=== PATIENT | male | born 1930 | race Caucasian/White ===

== ENCOUNTER 2017-12-19 15:52 | Outpatient (CLI) | payer MEDICARE, BC ==
[2017-12-19 16:16] LABS: Hemoglobin 15.1 g/dL (14.0-18.0); Mean Corpuscular HGB CONC 32.1 g/dL (32.0-36.0); Mean Corpuscular Hemoglobin 29.8 pg (27.0-31.0); Mean Corpuscular Volume 92.8 fl (80.0-94.0); Mean Platelet Volume 6.5 fL (7.4-10.4); Platelet Count 375 thou/uL (130-400); RBC Distribution Width 13.3 % (11.5-14.5); Red Blood Cell (RBC) Count 5.07 mill/uL (4.70-6.10); White Blood Cell (WBC) Count 8.8 thou/uL (4.8-10.8)
[2017-12-19 16:34] LABS: Anion Gap 12 mmol/L (10-20); BUN (Urea Nitrogen) 41 mg/dL (8.4-25.7); Calc. Creatinine Clearance 0 mL/min (70-130); Calcium 9.6 mg/dL (7.8-10.44); Carbon Dioxide 28 mmol/L (23-31); Chloride 108 mmol/L (98-107); Estimated GFR-MDRD 57; Glucose 102 mg/dL (83-110); Potassium 5.3 mmol/L (3.5-5.1); Sodium 143 mmol/L (136-145)
--- NOTE | 2017-12-19 17:10 | RAD ---
PA AND LATERAL VIEWS CHEST: 12/19/17 HISTORY: Preoperative evaluation. FINDINGS/IMPRESSION: The heart size is normal. The aorta is tortuous. The lungs are well expanded. There is linear plate o f atelectasis versus scar in the right lung base. Mild infiltrates are noted in the lung bases bilate rally. No lobar consolidation, pneumothoraces, or large effusions are seen. POS: [facility]
== END 2017-12-19 15:53 | disposition home or self-care (01) ==
LOC: LABBT 15:52
PROVIDERS: ATTEND Urology
DX: Z01.818 Encounter for other preprocedural examination (principal); Z01.812 Encounter for preprocedural laboratory examination; N20.2 Calculus of kidney with calculus of ureter; I77.1 Stricture of artery; J90 Pleural effusion, not elsewhere classified; J98.4 Other disorders of lung
CPT/HCPCS: 71046; 80048; 85027

== ENCOUNTER 2017-12-24 08:21 | Day surgery (SDC) | payer MEDICARE, BC ==
[2017-12-19 16:18] VITALS: BMI 21.2
[2017-12-24] MEDS ORDERED: CEFAZOLIN 1 GM, Syringe 2.5 ML in Sterile Water 7.5 ML SLOW IVP SCH (09:00)
--- NOTE | 2017-12-24 09:21 | RAD ---
ABDOMEN ONE VIEW: History: Pre-operative evaluation for a left renal stone. FINDINGS: KUB demonstrates a left ureteral stent in place. There does appear to be a poorly defined left renal calculus. There appear to be at least two right renal calculi. Moderate fecal material in the colon. Evidence for hiatal hernia. Linear and parenchymal changes in the lower lung zones having more of a c hronic appearance. IMPRESSION: Left ureteral stent. Bilateral renal calculi. Other findings as above. No recent prior radiographs av ailable for comparison. POS: [facility]
[2017-12-24] MEDS ORDERED: Fentanyl 250 MCG/5 ML VIAL ONE (12:13)
[2017-12-24] MEDS ORDERED: Iothalamate Meglumine 60% 50 ML VIAL FS ONE (12:14)
[2017-12-24] MEDS ORDERED: Furosemide 20 MG/2 ML VIAL ONE (12:14)
[2017-12-24] MEDS ORDERED: ePHEDrine/0.9% NaCl/PF SYRINGE 50 mg/10 ml ONE (14:53)
[2017-12-24] MEDS ORDERED: Ondansetron HCl/PF 4 MG/2 ML Vial ONE (14:53)
[2017-12-24] MEDS ORDERED: Propofol 200 MG/20 ML VIAL ONE (14:53)
[2017-12-24] MEDS ORDERED: Lidocaine 1% PF 5 ML VIAL ONE (14:53)
[2017-12-24] MEDS ORDERED: PHENYLEPHRINE-NS 100 MCG/ML 10 ML SYRINGE ONE (14:53)
--- NOTE | 2017-12-24 18:07 | OP ---
DATE OF PROCEDURE: 12/24/2017 PREOPERATIVE DIAGNOSIS: Left ureteral and left renal stones. POSTOPERATIVE DIAGNOSIS: Left ureteral and left renal stones. PROCEDURE: Cystoscopy, left ureteroscopy, left holmium laser lithotripsy, left stone basketing and s tone removal, left stent 6 x 22 and left extracorporal shock wave lithotripsy. SURGEON: Jannette Pan MD ANESTHESIA: General with laryngeal mask airway. FINDINGS: Adequate removal of a left ureteral stone after fragmentation, adequate fragmentation of t he left renal stone. Stent remaining was a 6 x 22 with a string. No blood loss, no complications other than the left renal stone was difficult to see via fluoroscopy. INDICATIONS: The patient is an 87-year-old male who underwent urgent stent for left ureteral obstruc tion with rising creatinine and pain and presents for definitive stone therapy. He also had a left r enal stone, so we opted for elective treatment of this at the same time. PROCEDURE IN DETAIL: The patient was brought to the room by Anesthesia, placed on the table in supin e position. After receiving general anesthetic, the legs were placed in lithotomy position with the right leg elevated and left leg lowered and his perineum was prepped and draped in sterile fashion. Using a 22-Chinese cystoscope and a 30-degree lens, it was traversed and the bladder entered. The tre nt was grasped and brought out through the urethral meatus. A wire was attempted to pass both forwar d and backwards and was unable to uncoil it, so alongside the stent, that was partially removed. The cystoscope was taken to the left ureteral orifice and then intubated with a Pollack catheter and a w victorino. The stent still could not be extracted at this time, so leaving the wire in place, the scope wa s broken apart, bladder drained and removed in its entirety and then the stent was removed with some pressure consistent with it going alongside the stone as it was removed, so with the wire in place an d the rigid ureteroscope was used to travel up to the level of the stone where laser holmium lithotri psy was used to pass it into 2 small fragments and a larger fragment. All fragments were removed wit h the stone basket and sent for specimen. A final pass of the ureter showed that it was clear of any concerning stone and then a 6 x 22 double-J was placed over a wire with good coil visualized in the renal pelvis via fluoroscopy and a good coil visualized in the bladder via cystoscopy. The patient w as then returned to supine position. A prior KUB was examined and showed the left superior pole stone, but this was more difficult to eval uate via fluoroscopy. A significant amount of time was spent trying to assess for this and ultimatel y agreed that it was most likely in that same area as the KUB from a few hours earlier, but just more difficult to see as it was in this area that I delivered lithotripter to deliver 2000 shocks at a po wer level of 4/6 at a maximum rate of 90 per minute. The patient tolerated the procedure well and wa s then awakened and transferred to PACU in stable condition.
== END 2017-12-24 16:35 | disposition home or self-care (01) ==
LOC: SDC 08:21
PROVIDERS: ATTEND Urology
PROC: 0TF4XZZ Fragmentation in Left Kidney Pelvis, External Approach (ICD-10-PCS; principal; 2017-12-24)
PROC: 0TC78ZZ Extirpation of Matter from Left Ureter, Via Natural or Artificial Opening Endoscopic (ICD-10-PCS; 2017-12-24)
PROC: 0T778DZ Dilation of Left Ureter with Intraluminal Device, Via Natural or Artificial Opening Endoscopic (ICD-10-PCS; 2017-12-24)
DX: N20.1 Calculus of ureter (principal); N20.0 Calculus of kidney; R35.0 Frequency of micturition; R35.1 Nocturia; I10 Essential (primary) hypertension; K21.9 Gastro-esophageal reflux disease without esophagitis; G89.29 Other chronic pain; M54.9 Dorsalgia, unspecified; M19.90 Unspecified osteoarthritis, unspecified site; K51.90 Ulcerative colitis, unspecified, without complications; D50.8 Other iron deficiency anemias; I44.7 Left bundle-branch block, unspecified; Z87.442 Personal history of urinary calculi; Z79.899 Other long term (current) drug therapy; Z79.82 Long term (current) use of aspirin; Z88.2 Allergy status to sulfonamides; Z88.8 Allergy status to other drugs, medicaments and biological substances
CPT/HCPCS: 74018; 82365; 88300; A4216; J0690; J1940; J2001; J2405; J2704; J3010; Q9961

== ENCOUNTER 2019-10-16 11:41 | Inpatient (IN) | payer MEDICARE, BC ==
--- NOTE | 2019-10-16 12:35 | CT ---
CT Head without IV contrast COMPARISON: None available HISTORY: Injury after fall. Hypotensive. TECHNIQUE: Axial CT imaging at 5 mm intervals from vertex through skull base without contrast FINDINGS: There is no evidence of an acute infarction, hemorrhage, mass effect, or midline shift. There is decr eased attenuation seen in the periventricular white matter which is nonspecific but likely attributable to chronic small vessel ischemic changes. There is mild cerebral volume loss. The ventri cular system is normal in size, shape, and position for the degree of sulcal atrophy. Visualized paranasal sinuses are clear. There is a small mastoid effusion involving a posterior right mastoid air cell. Osseous structures appear intact. IMPRESSION: 1. No acute intracranial abnormality demonstrated. 2. Small right mastoid air cell effusion.
--- NOTE | 2019-10-16 12:43 | CT ---
NONCONTRAST CT CERVICAL SPINE: HISTORY: Injury after a fall. TECHNIQUE: Contiguous axial CT images are obtained through the cervical spine from the skull base to the T1-2 le mode. Sagittal and coronal reformatted images are provided. FINDINGS: Multilevel degenerative changes are seen in the cervical spine. There are prominent degenerative tamar nges at the articulation of the anterior arch of C1 and the odontoid. There is narrowing of the C5-6 , C6-7, and C7-t1 intervertebral disk spaces. Multilevel facet degenerative changes are noted. Scat tered mild degrees of neural foraminal narrowing are seen due to bony encroachment. No fracture or subluxation is seen involving the cervical spine. The interspinous distances appear t o be within normal limits. No prevertebral soft tissue swelling is seen. The visualized lung apices are clear. Thyroid gland has a grossly normal nonenhanced CT appearance. There is partial visualization of right subclavian leads. IMPRESSION: Multilevel degenerative changes cervical spine without fracture or subluxation present. POS: [facility]
--- NOTE | 2019-10-16 12:59 | RAD ---
AP PELVIS RADIOGRAPH: HISTORY: Left hip pain after a fall. FINDINGS: There is a lucency seen in the left acetabulum suggesting a fracture. There is no evidence of a dislo cation involving the left hip. Minimal left glenohumeral osteoarthropathy is present. Each hip is in external rotation. Degenerative change is seen in the lower lumbar spine. Vascular calcifications and phleboliths overlie the pelvis with vascular calcifications overlying the region of the femoral a rteries. IMPRESSION: Left acetabular fracture. POS: [facility]
--- NOTE | 2019-10-16 13:01 | RAD ---
TWO VIEWS LEFT HIP: HISTORY: Left hip pain after a fall. FINDINGS: There is a lucency seen left acetabulum suggestion a fracture. There is no evidence of a dislocation involving the left hip. Minimal left glenohumeral osteoarthropathy is present. Degenerative changes are seen in the lower lumbar spine. Vascular calcifications are seen in the region of iliac and fem oral arteries. Calcification overlies the left aspect of the sacrum which may represent overlying ph lebolith. This is difficult to further evaluate on plain film evaluation. IMPRESSION: Left acetabular fracture. POS: [facility]
--- NOTE | 2019-10-16 13:09 | RAD ---
Left elbow 2 views: 10/16/2019 COMPARISON: None HISTORY: Injury, trauma, pain FINDINGS: There is severe soft tissue swelling. There is a comminuted proximal left ulnar fracture/ol ecranon fracture with intra-articular extension. The olecranon fracture fragment is retracted by 9 mm posteriorly and slightly proximally on the basis of triceps insertion retraction. IMPRESSION: Comminuted displaced intra-articular fracture of the proximal left ulna/olecranon. Orthop edic consultation advised.
[2019-10-16] MEDS ORDERED: Fentanyl 100 MCG/2 ML VIAL ONE ×2 (13:39→14:57)
[2019-10-16 13:58] LABS: #Eosinphils 0.1 thou/uL (0.0-0.7); #Neutrophils 12.1 thou/uL (1.40-6.50); %Basophils 0.3 % (0.0-1.0); %Eosinophils 0.9 % (0.0-10.0); %Lymphocytes 6.7 % (21.0-51.0); %Monocytes 6.8 % (0.0-10.0); %Neutrophils 85.2 % (42.0-75.0); Hemoglobin 12.8 g/dL (14.0-18.0); Mean Corpuscular HGB CONC 31.7 g/dL (32.0-36.0); Mean Corpuscular Hemoglobin 26.5 pg (27.0-31.0); Mean Corpuscular Volume 83.7 fL (78.0-98.0); Mean Platelet Volume 7.8 fL (7.4-10.4); Platelet Count 210 thou/uL (130-400); RBC Distribution Width 14.1 % (11.5-14.5); Red Blood Cell (RBC) Count 4.81 mill/uL (4.70-6.10); White Blood Cell (WBC) Count 14.2 thou/uL (4.8-10.8)
--- NOTE | 2019-10-16 14:01 | RAD ---
PORTABLE CHEST 1 VIEW: DATE: 10/16/2019. TIME: 1:34 p.m. HISTORY: Preoperative evaluation. FINDINGS: The heart size is borderline. The aorta is tortuous. There is a right-sided pacemaker device. No f ocal areas of consolidation, pneumothoraces, debbie pulmonary edema, or pleural effusions are seen. T here are degenerative changes in the shoulder joints. IMPRESSION: No acute process. POS: [facility]
[2019-10-16 14:04] LABS: INR-International Normal Ratio 1.4; PTT 33.5 SEC (22.9-36.1); Prothrombin Time 16.6 SEC (12.0-14.7)
[2019-10-16 14:19] LABS: ALT (SGPT) 11 U/L (8-55); AST (SGOT) 21 U/L (5-34); Albumin 3.5 g/dL (3.4-4.8); Alkaline Phosphatase 83 U/L (40-110); Anion Gap 13 mmol/L (10-20); BUN (Urea Nitrogen) 28 mg/dL (8.4-25.7); Bilirubin, Total 0.6 mg/dL (0.2-1.2); Calc. Creatinine Clearance 0 mL/min (70-130); Carbon Dioxide 21 mmol/L (23-31); Chloride 108 mmol/L (98-107); Estimated GFR-MDRD 59; Globulin 2.2 g/dL (2.4-3.5); Glucose 130 mg/dL (83-110); Potassium 4.2 mmol/L (3.5-5.1); Protein, Total 5.7 g/dL (5.8-8.1); Sodium 138 mmol/L (136-145)
--- NOTE | 2019-10-16 14:20 | CT ---
CT Lower Ext Lt WO Con History: Injury. Comparison: Radiograph same day Findings: Left anterior column posterior hemitransverse fracture of the acetabulum. Fracture of the i nferior pubic ramus. The anterior column fracture does extend into the pubic root. Large left hip joint effusion with pelvic sidewall hematoma. Moderate extraperitoneal hematoma. Was a lso small volume intraperitoneal hemorrhage. Sacrum appears be intact. Soft tissue contusion over the left lateral thigh. The femoral head and neck are intact. Small flake of bone anterior to the left humeral head versus ossified cartilage. Impression: Left anterior column posterior hemitransverse acetabular fracture with the anterior colum n fracture extending to the acetabular root. Associated minimally displaced left inferior pubic ramus fracture. Extraperitoneal and small volume intraperitoneal hemorrhage with large left pelvic sidewall hematoma. Either a small intra-articular flake of bone axial image 21 versus less likely ossified cartilage.
[2019-10-16] MEDS ORDERED: Iopamidol-370 76% 500 ML 1 ML ONE (15:27)
[2019-10-16] MEDS ORDERED: Ondansetron PF 4 MG/2 ML Vial IVP PRN (15:30)
[2019-10-16] MEDS ORDERED: Dextrose 50% Abboject 50 ML SYRINGE SLOW IVP PRN (15:30)
[2019-10-16] MEDS ORDERED: Insulin Regular 300 UNITS/3 ML VIAL SC PRN (15:30)
[2019-10-16] MEDS ORDERED: Dextrose 5% in Water 1,000 ML IV PRN (15:30)
[2019-10-16] MEDS ORDERED: Morphine 2 MG/ML SYRINGE SLOW IVP SCH (15:58)
--- NOTE | 2019-10-16 17:25 | CT ---
CT OF THE CHEST, ABDOMEN AND PELVIS WITH IV CONTRAST INDICATION: Fall COMPARISON: CT the abdomen and pelvis dated June 12, 2013 FINDINGS: Motion artifact limits image detail. CHEST: Lungs:Clear. 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 There i s mild cardiomegaly Pleural space: No pneumothorax or effusion. Additional findings: There is a large hiatal hernia. There is a dual-lead pacemaker overlying the ri ght chest wall ABDOMEN: Liver:Normal appearing. Spleen:Normal appearing. Pancreas:Normal appearing. Adrenal Glands:Normal appearing. Kidneys:Normal appearing. Aorta:There are moderate vascular calcifications seen involving the visualized vasculature. Additional findings: No free fluid or free air. PELVIS: Bowel:There is mild amount retained stool within colon. There are scattered colonic diverticula. Bladder:Normal appearing. Reproductive structures:Normal appearing. Rectum and perirectal soft tissues:Normal appearing. Additional findings: No free fluid or free air. OSSEOUS STRUCTURES: There is a heavily comminuted left anterior column and superior acetabular roof fracture. There is a mildly displaced left inferior pubic ramus fracture. There is mild hemorrhage is seen within the extraperitoneal space of the lower pelvis. There are stable compression abnormalities involving T12 a nd T8. There is scattered degenerative and osteoarthritic changes. IMPRESSION: 1. Heavily comminuted left acetabular fracture with left inferior pubic ramus fracture. Mild extraper itoneal hemorrhage seen within the pelvis. 2. Chronic T12 and T8 compression abnormalities. 3. No additional acute traumatic injury identified.
[2019-10-16] MEDS: Sodium Chloride 0.9% 1,000 ML IV SCH (17:49)
[2019-10-16] MEDS: Acetaminophen 500 MG TAB PO SCH ×2 (18:02→23:37)
[2019-10-16] MEDS ORDERED: Morphine 4 MG/ML VIAL SLOW IVP PRN (18:14)
--- NOTE | 2019-10-16 19:28 | HP ---
REQUESTING PHYSICIAN: CONSULTING PHYSICIAN: Dr. Nolasco. ATTENDING PHYSICIAN: Dr. Arteaga. HISTORY OF PRESENT ILLNESS: Mr. Ghosh is an 89-year-old male presents to the ED for left elbow and left hip pain after a fall. The patient reports he was walking, tripped and fell, did not have loss consciousness or hit his head at that time. After the fall, the patient reports having severe pain of the left elbow and left hip, unable to bear weight. No other associate symptoms to be reported. Upon arrival in the ED, the patient is alert and awake. GCS 15. Complained of pain from the left elbow and left hip. Vital signs stable. REVIEW OF SYSTEMS: Noncontributory except per HPI. PAST MEDICAL HISTORY: Hypertension, pacemaker. PAST SURGICAL HISTORY: Bilateral knee replacement. SOCIAL HISTORY: The patient lives at home. Denies drug use. Denies alcohol. No smoking history. ALLERGIES: SULFA. PHYSICAL EXAMINATION: GENERAL: Currently patient lying in bed, comfortable in no acute respiratory distress. VITAL SIGNS: Blood pressure 124/79, respiratory rate 14, O2 saturation 96% on room air, temperature 97.6, respiratory rate 14, heart rate is 88. HEENT: Atraumatic. No bruising. No deformity. Nontender to palpation. NECK: Trachea midline. Nontender to palpation. CHEST: Atraumatic. No bruising. No crepitus. No tenderness to palpation. LUNGS: Clear bilaterally. HEART: Regular rate and rhythm. ABDOMEN: Soft, nondistended. EXTREMITY: Left upper extremity pain to palpation and left elbow range of motion limited due to pain. Left hip range of motion limited due to pain. However, neurovascularly intact x4. NEUROLOGY: No focal neurology deficits. DIAGNOSTIC STUDIES: Initial work showed, chest x-ray no acute process. Chest, abdominal, pelvic CT scan show heavily comminuted left acetabular fracture, left inferior pubic ramus fracture, mild extraperitoneal hemorrhage seen within the pelvis. Left elbow x-ray show comminuted displaced intra-articular fracture of the proximal left ulnar olecranon. ASSESSMENT: 1. Status post ground level fall. 2. Left intra-articular ulnar fracture. 3. Left acetabular fracture, extraperitoneal hematoma. 4. History of pacemaker and history of lumbar spine compression fracture, chronic. PLAN: Dr. Nolasco is notified. Dr. Nolasco will take the patient to the OR for left ulnar fracture fixation tomorrow. The patient will be admitted to [place] [id number] for pain control. The patient will be n.p.o. at midnight. The patient will have DVT prophylaxis, gastritis prophylaxis. After surgery the patient will be working with PT/OT. Anticipate placement in rehabilitation facility. In regard to left acetabular fracture, Dr. Nolasco will advise if he needs fixation or conservative treatment. Job ID: [id number] MTDD
[2019-10-16] MEDS ORDERED: Morphine 2 MG/ML SYRINGE SLOW IVP PRN (19:38)
[2019-10-16] MEDS ORDERED: Ondansetron PF 4 MG/2 ML Vial SLOW IVP PRN (19:38)
[2019-10-16] MEDS ORDERED: CEFAZOLIN 2 GM in Premix Bag 1 BAG IVPB SCH (19:45)
[2019-10-16] MEDS ORDERED: Famotidine/PF 20 mg/2ml Vial SLOW IVP SCH (21:00)
[2019-10-16] MEDS: Gabapentin 100 MG CAP PO SCH (21:20)
[2019-10-16] MEDS: Senokot S 8.6-50 MG TAB PO SCH (21:20)
[2019-10-16] MEDS: Ibuprofen 600 MG TAB PO SCH (21:20)
[2019-10-17 03:14] VITALS: BMI 28.2
[2019-10-17] MEDS: Sodium Chloride 0.9% 1,000 ML IV SCH ×3 (03:34→23:48)
[2019-10-17] MEDS: Acetaminophen 500 MG TAB PO SCH ×4 (06:40→23:48)
[2019-10-17] MEDS: Ibuprofen 600 MG TAB PO SCH ×3 (06:41→21:49)
[2019-10-17] MEDS: Gabapentin 100 MG CAP PO SCH ×2 (08:09→20:30)
[2019-10-17] MEDS: Polyethylene Glycol 3350 17 GM Packet PO SCH (08:10)
[2019-10-17] MEDS: Senokot S 8.6-50 MG TAB PO SCH ×2 (08:10→20:30)
[2019-10-17] MEDS ORDERED: Prevnar 13-Val Conj/PF 0.5 ML SYRINGE IM ONE (09:00)
[2019-10-17] MEDS ORDERED: FLU VACC TS2019-20(65YR UP)/PF 180 MCG/0.5 ML SYRINGE IM ONE (09:00)
[2019-10-17] MEDS ORDERED: PROPOFOL 200 MG/20 ML VIAL ONE (11:59)
[2019-10-17] MEDS ORDERED: Metoclopramide HCl 10 MG/2 ML VIAL ONE (11:59)
[2019-10-17] MEDS ORDERED: Rocuronium Bromide 10 MG/ML (10ML VIAL) ONE (11:59)
[2019-10-17] MEDS ORDERED: Lidocaine 1% PF 5 ML VIAL ONE (11:59)
[2019-10-17] MEDS ORDERED: Glycopyrrolate 0.2 MG/ML 5 ML SYRINGE ONE (11:59)
[2019-10-17] MEDS ORDERED: Dexamethasone 20 MG/5 ML VIAL ONE (11:59)
[2019-10-17] MEDS ORDERED: Ondansetron PF 4 MG/2 ML Vial ONE (11:59)
[2019-10-17] MEDS ORDERED: Phenylephrine HCL 10 MG/ML VIAL ONE (12:15)
[2019-10-17] MEDS ORDERED: Fentanyl 100 MCG/2 ML VIAL ONE (12:15)
[2019-10-17] MEDS ORDERED: Lidocaine 1% w/Epinephrine 1:100K 20 ML VIAL ONE (14:39)
[2019-10-17] MEDS ORDERED: Bupivacaine 0.25% HCL 30 ML VIAL ONE (14:39)
[2019-10-17] MEDS ORDERED: HYDROmorphone 2 MG/ML VIAL ONE (14:46)
--- NOTE | 2019-10-17 15:00 | PRG ---
DATE OF SERVICE: 10/17/2019 Hero Ghosh is an 89-year-old male who was on Plavix and aspirin, fell and fractured his left ulnar and left acetabulum. Dr. Nolasco seen him and planned an ORIF for his left ulna, but treated him nonsurgically for his acetabular fracture. He probably need to be in a skilled bed. His labs are stable. I agree with plan per ZAINA Yeung. Job ID: [id number]
[2019-10-17] MEDS ORDERED: PACU-Morphine 4MG/ML VIAL SLOW IVP PRN (15:10)
[2019-10-17] MEDS ORDERED: HYDROmorphone 2 MG/ML VIAL SLOW IVP PRN (15:10)
[2019-10-17] MEDS ORDERED: Morphine Sulfate 2 MG/ML SYRINGE SLOW IVP PRN (15:10)
[2019-10-17] MEDS ORDERED: Ondansetron HCl/PF 4 MG/2 ML Vial IVP PRN (15:10)
[2019-10-17] MEDS ORDERED: Promethazine HCl 25 MG/ML VIAL SLOW IVP PRN (15:10)
[2019-10-17] MEDS ORDERED: Promethazine HCl 25 MG/ML VIAL IM PRN (15:10)
--- NOTE | 2019-10-17 16:27 | PRG ---
DATE OF SERVICE: 10/17/2019 Augie Monahan is an 89-year-old who lives with the family at home, fell, resulting in a right hip fracture, ORIF today. His pain is under good control. He is doing well. I agree with plan per Devyn Arellano PA-C. Discharge home or penitentiary, pending physical therapy evaluation and treatment. Job ID: [id number]
--- NOTE | 2019-10-17 19:33 | PRG ---
DATE OF SERVICE: 10/17/2019 SUBJECTIVE: Mr. Ghosh is an 89-year-old male, status post ground-level fall. He sustained left ulnar fracture and left acetabular fracture, history of pacemaker, lumbar spine compression fracture. Currently, the patient is remained in surgical floor for pain control. He is on n.p.o., ready to go to the OR with Orthopedics for ORIF of left ulna fracture. The patient reports pain is well controlled. Vital signs are stable. He voiced no concern. OBJECTIVE: GENERAL: Currently, the patient is lying in bed comfortably with no acute respiratory distress. VITAL SIGNS: This morning, temperature 97.7, heart rate 74, respiratory rate 16, O2 saturation 92 on room air, and blood pressure 101/68. LUNGS: Clear bilaterally. HEART: Regular rate and rhythm. ABDOMEN: Soft, nondistended. EXTREMITIES: Neurovascularly intact x4. ASSESSMENT: 1. Status post ground-level fall. 2. Left intra-articular ulna fracture. 3. Left acetabular fracture, extraperitoneal hematoma, stable. 4. History of pacemaker, lumbar spine compression fracture, stable. PLAN: Continue supportive care. Continue pain control. Continue n.p.o. The patient will go to the OR with Dr. Nolasco for ORIF of left ulnar fracture. Postoperatively, the patient will need to work with PT and OT. Anticipate placement in rehabilitation facility. Job ID: [id number]
--- NOTE | 2019-10-17 19:36 | OP ---
DATE OF PROCEDURE: 10/17/2019 PREOPERATIVE DIAGNOSIS: Olecranon fracture, left elbow. POSTOPERATIVE DIAGNOSIS: Olecranon fracture, left elbow. PROCEDURES PERFORMED: Open reduction and internal fixation of olecranon, left elbow. ANESTHESIA: General. DESCRIPTION OF PROCEDURE: The patient was given preoperative IV antibiotics, taken to operating room, placed in a supine position. Satisfactory general anesthesia was performed. The left upper extremity was sterilely prepped and draped in usual fashion. After exsanguination, tourniquet was raised to 220 mmHg in the left upper arm. A longitudinal incision was made over the proximal aspect of the forearm and then slightly curvilinear over the tip of the olecranon. Blunt and sharp dissection was made down to the olecranon. There was mild comminution of the olecranon. The joint space was visible. It was irrigated and hematoma was evacuated. The fracture was then reduced, held reduced with a towel clip. An 18-gauge wire was placed transversely through the proximal shaft of the ulna and two 5/64 smooth K-wires were placed through the olecranon into the shaft of the ulna. C-arm was used to verify good alignment of the fractures and proper placement of the wire and pins. A [id number] was placed on the 18-gauge wire and it was tightened, which allowed for good internal fixation of the fracture. The K-wires were bent and then, buried under the soft tissue of the triceps. The wire that was tightened was placed in the soft tissue. The wound was irrigated with antibiotic solution and closed using 0 Vicryl for the fat and subcutaneous tissue, and the skin was closed with 3-0 Rapide. The wound was then infiltrated with 20 mL of 0.25% Marcaine with epinephrine. Sterile dressing was applied along with a long-arm posterior splint. The patient was then awakened, extubated, and transferred to recovery room in stable condition. ESTIMATED BLOOD LOSS: Minimal. COMPLICATIONS: None. TOURNIQUET TIME: 45 minutes. Job ID: [id number]
[2019-10-17] MEDS: CEFAZOLIN 2 GM in Premix Bag 1 BAG IVPB SCH (20:29)
[2019-10-17] MEDS: Famotidine/PF 20 mg/2ml Vial SLOW IVP SCH (20:30)
[2019-10-18] MEDS: CEFAZOLIN 2 GM in Premix Bag 1 BAG IVPB SCH (04:47)
[2019-10-18] MEDS: Acetaminophen 500 MG TAB PO SCH ×4 (05:31→23:24)
[2019-10-18] MEDS: Ibuprofen 600 MG TAB PO SCH ×3 (05:31→23:24)
--- NOTE | 2019-10-18 07:31 | PRG ---
DATE OF SERVICE: 10/18/2019 SUBJECTIVE: The patient is currently on the surgical floor. He is status post ground level fall, which he sustained left olecranon fracture. The patient underwent open reduction and internal fixation of same today and he reportedly tolerated this procedure well. Postoperatively, the nurses report that his pain is controlled. OBJECTIVE: VITAL SIGNS: Stable. The patient is afebrile. GENERAL: The patient is resting comfortably in bed. Appears in no distress. LUNGS: His respirations appear nonlabored. EXTREMITIES: His splint and dressing are clean, dry, and intact. ASSESSMENT: 1. Status post ground level fall. 2. Status post open reduction and internal fixation of left olecranon fracture. 3. Left acetabular fracture, with extraperitoneal hematoma, stable. PLAN: Will be to continue supportive care. Encourage physical and occupational therapy and await placement decision. Job ID: [id number]
[2019-10-18] MEDS: Polyethylene Glycol 3350 17 GM Packet PO SCH (07:53)
[2019-10-18] MEDS: Senokot S 8.6-50 MG TAB PO SCH ×2 (07:53→20:04)
[2019-10-18] MEDS: Gabapentin 100 MG CAP PO SCH ×2 (07:53→20:03)
[2019-10-18] MEDS: Sodium Chloride 0.9% 1,000 ML IV SCH (10:28)
--- NOTE | 2019-10-18 12:59 | PRG ---
DATE OF SERVICE: 10/18/2019 SUBJECTIVE: Mr. Ghosh is an 89-year-old male, status post ground level fall. He sustained left ulnar fracture and left acetabular fracture, with a history of pacemaker, lumbar spine compression fracture, stable. The patient reports pain is well controlled. He tolerated with the regular diet. Vital signs are stable . OBJECTIVE: GENERAL: Currently, the patient lying in bed comfortable with no acute respiratory distress. VITAL SIGNS: Stable. LUNGS: Clear bilaterally. HEART: Regular rate and rhythm. ABDOMEN: Soft, nondistended. EXTREMITIES: Postop dressing of the left arm is clean, dry, intact. Neurovascularly intact x4. NEUROLOGIC: No focal neurological deficits. ASSESSMENT: 1. Status post ground level fall. 2. Left intra-articular ulnar fracture, status post open reduction and internal fixation of ulnar fracture, postop day #1. 3. Left acetabular fracture, extraperitoneal hematoma, stable, conservative treatment. 4. History of pacemaker, lumbar spine compression fracture, stable. PLAN: Continue supportive care. Continue pain control. Continue DVT prophylaxis. Anticipate placement in rehabilitation facility tomorrow or go home with physical therapy. Job ID: [id number]
[2019-10-18] MEDS: traMADol HCl 50 MG TAB PO PRN (18:23)
[2019-10-18] MEDS: Enoxaparin Sodium 40 MG/0.4 ML SYRINGE SC SCH (20:02)
[2019-10-18] MEDS: Famotidine/PF 20 mg/2ml Vial SLOW IVP SCH (20:03)
--- NOTE | 2019-10-18 21:09 | PRG ---
DATE OF SERVICE: 10/18/2019 SUBJECTIVE: Mr. Ghosh underwent ORIF of olecranon fracture of the left elbow. He also sustained a left acetabular fracture, which does not require surgery. The patient worked with physical therapy today and was unable to apply much weight on the left lower extremity because of pain. OBJECTIVE: Vital signs, temperature 97.9, pulse 81, respiratory rate 16, blood pressure 163/92. PLAN: The patient will continue to work with Physical and Occupational Therapy. We will have case management discussed with him and his family posthospitalization plans. The patient probably would be best fitted to go to a long term facility. Job ID: [id number]
[2019-10-19] MEDS: traMADol HCl 50 MG TAB PO PRN ×3 (01:06→21:10)
--- NOTE | 2019-10-19 03:06 | PRG ---
DATE OF SERVICE: 10/19/2019 SUBJECTIVE: The patient is currently on the surgical floor. He is status post open reduction and internal fixation of a left olecranon fracture. He also sustained a nonoperative left acetabular fracture. The patient had some pain today and was unable to work very much with therapy. His pain medications have been adjusted. He is tolerating a diet and we are awaiting placement decision. OBJECTIVE: VITAL SIGNS: Stable. The patient is afebrile. GENERAL: The patient is resting comfortably in bed. He awakens to minimal verbal stimuli. He appears in no distress. He has no complaints this time. EXTREMITIES: Neurovascularly intact. His splint is clean, dry, and intact. ASSESSMENT: 1. Status post ground-level fall. 2. Status post open reduction and internal fixation of left olecranon fracture. 3. Left acetabular fracture, treated nonoperatively. PLAN: Will be to continue supportive care, encourage physical and occupational therapy, and await placement decision. Job ID: [id number]
[2019-10-19 05:03] LABS: #Eosinphils 0.2 thou/uL (0.0-0.7); #Lymphocytes 0.8 thou/uL (1.20-3.40); #Neutrophils 8.6 thou/uL (1.40-6.50); %Basophils 0.2 % (0.0-1.0); %Lymphocytes 7.7 % (21.0-51.0); %Neutrophils 81.1 % (42.0-75.0); Hemoglobin 9.4 g/dL (14.0-18.0); Mean Corpuscular HGB CONC 31.3 g/dL (32.0-36.0); Mean Corpuscular Hemoglobin 26.6 pg (27.0-31.0); Mean Corpuscular Volume 84.7 fL (78.0-98.0); Platelet Count 167 thou/uL (130-400); RBC Distribution Width 14.4 % (11.5-14.5); Red Blood Cell (RBC) Count 3.52 mill/uL (4.70-6.10); White Blood Cell (WBC) Count 10.5 thou/uL (4.8-10.8)
[2019-10-19] MEDS: Ibuprofen 600 MG TAB PO SCH ×3 (05:11→21:03)
[2019-10-19] MEDS: Acetaminophen 500 MG TAB PO SCH ×3 (05:11→17:12)
[2019-10-19] MEDS: Senokot S 8.6-50 MG TAB PO SCH ×2 (07:51→21:00)
[2019-10-19] MEDS: Polyethylene Glycol 3350 17 GM Packet PO SCH (07:52)
[2019-10-19] MEDS: Gabapentin 100 MG CAP PO SCH ×2 (07:52→21:00)
--- NOTE | 2019-10-19 08:21 | RAD ---
TWO VIEWS LEFT ELBOW: DATE: 10/17/2019. COMPARISON: 10/16/2019. HISTORY: Fracture status post ORIF. FINDINGS: Two intraoperative images are present demonstrating surgical treatment of proximal left ulnar fractur e. There is anatomic alignment at the fracture site. IMPRESSION: Open reduction internal fixation as above. POS: [facility]
[2019-10-19] MEDS ORDERED: Nitroglycerin 0.4 MG TAB (25 Tab Bottle) SL PRN (17:10)
--- NOTE | 2019-10-19 18:47 | PRG ---
DATE OF SERVICE: 10/19/2019 SUBJECTIVE: Mr. Ghosh is an 89-year-old male status post ground level fall. He sustained left ulnar fracture and left acetabular fracture. He underwent ORIF of left ulnar fracture postop day #2, left acetabular fracture conservative treatment. The patient reports pain is well controlled. He is able to work with PT/OT. His vital signs are stable. He tolerated with his regular diet. Urine adequate. OBJECTIVE: GENERAL: The patient currently lying down in bed comfortable with no acute respiratory distress. VITAL SIGNS: Temperature 97.7, heart rate 72, respiratory rate 16, O2 saturation 93% on room air, and blood pressure 160/92. LUNGS: Clear bilaterally. HEART: Regular rate and rhythm. ABDOMEN: Soft and nondistended. EXTREMITIES: Neurovascularly intact x4. NEUROLOGIC: No focal neurology deficits. ASSESSMENT: 1. Status post ground level fall. 2. Left ulnar fracture, status post open reduction and internal fixation of left ulnar fracture, postop day #2. 3. Left acetabular fracture, extraperitoneal hematoma stable, conservative treatment. 4. History of pacemaker, lumbar spine compression fracture stable. PLAN: Plan will be continue supportive care. Continue with acute pain control. Continue DVT prophylaxis. Continue working with PT OT. Anticipate placement is pending due to insurance authorization. Anticipate placement in rehabilitation facility. Job ID: [id number]
[2019-10-19] MEDS: Pravastatin Sodium 20 MG TAB PO SCH (20:59)
[2019-10-19] MEDS: Carvedilol 3.125 MG TAB PO SCH (21:00)
[2019-10-19] MEDS: Enoxaparin Sodium 40 MG/0.4 ML SYRINGE SC SCH (21:00)
[2019-10-19] MEDS: Famotidine/PF 20 mg/2ml Vial SLOW IVP SCH (21:00)
--- NOTE | 2019-10-19 23:04 | PRG ---
DATE OF SERVICE: 10/19/2019 SUBJECTIVE: Mr. Ghosh underwent ORIF of left olecranon and also sustained a left acetabular fracture. The patient has been working with Physical Therapy, but was unable to do much because of the amount of pain that he has. OBJECTIVE: VITAL SIGNS: The patient has been afebrile, pulse 80, respiratory rate 18, blood pressure 170/86. MUSCULOSKELETAL: Left upper and left lower extremity neurovascularly intact. LABORATORY DATA: CBC shows hemoglobin 9.4 and hematocrit 29.9. PLAN: The patient will continue to try to work with a therapist, do as much as he possibly can. He is awaiting placement to either [facility] or [facility]. Job ID: [id number]
[2019-10-20] MEDS: Acetaminophen 500 MG TAB PO SCH ×4 (00:16→18:05)
--- NOTE | 2019-10-20 01:19 | PRG ---
DATE OF SERVICE: SUBJECTIVE: The patient is currently on the surgical floor. He is status post open reduction and internal fixation of a left olecranon fracture, and he is also being treated conservatively for a left acetabular fracture. The patient began working with Physical Therapy today. He is tolerating a diet. His pain is controlled. OBJECTIVE: VITAL SIGNS: Stable. The patient is afebrile. GENERAL: The patient is just comfortably in bed. He is awake, alert, and oriented x3. Risa Coma Scale is 15. He appears in no distress. LUNGS: His respirations are nonlabored. EXTREMITIES: His left upper extremity is immobilized in a splint that is clean, dry, and intact. Extremities are neurovascularly intact x4. ASSESSMENT: 1. Status post fall. 2. Status post open reduction of left olecranon fracture, postop day #2. 3. Left acetabular fracture with extraperitoneal hematoma, stable, treated conservatively. PLAN: Plan will be to continue supportive care. Encourage physical and occupational therapy, pain control, and discuss placement. Job ID: [id number]
[2019-10-20] MEDS: traMADol HCl 50 MG TAB PO PRN ×3 (05:20→19:26)
[2019-10-20] MEDS: Ibuprofen 600 MG TAB PO SCH ×3 (05:21→21:31)
[2019-10-20 07:44] LABS: #Eosinphils 0.7 thou/uL (0.0-0.7); #Lymphocytes 0.9 thou/uL (1.20-3.40); #Monocytes 0.9 thou/uL (0.11-0.59); #Neutrophils 7.1 thou/uL (1.40-6.50); %Basophils 0.4 % (0.0-1.0); %Eosinophils 7.6 % (0.0-10.0); %Lymphocytes 9.5 % (21.0-51.0); %Monocytes 9.6 % (0.0-10.0); %Neutrophils 72.9 % (42.0-75.0); Hemoglobin 9.8 g/dL (14.0-18.0); Mean Corpuscular HGB CONC 31.7 g/dL (32.0-36.0); Mean Corpuscular Hemoglobin 27.2 pg (27.0-31.0); Mean Corpuscular Volume 85.8 fL (78.0-98.0); Mean Platelet Volume 7.9 fL (7.4-10.4); Platelet Count 217 thou/uL (130-400); Red Blood Cell (RBC) Count 3.61 mill/uL (4.70-6.10); White Blood Cell (WBC) Count 9.8 thou/uL (4.8-10.8)
[2019-10-20 08:14] LABS: Anion Gap 10 mmol/L (10-20); BUN (Urea Nitrogen) 22 mg/dL (8.4-25.7); Calc. Creatinine Clearance 65 mL/min (70-130); Calcium 8.1 mg/dL (7.8-10.44); Carbon Dioxide 24 mmol/L (23-31); Chloride 108 mmol/L (98-107); Estimated GFR-MDRD 85; Glucose 94 mg/dL (83-110); Magnesium 1.9 mg/dL (1.6-2.6); Potassium 3.9 mmol/L (3.5-5.1); Sodium 138 mmol/L (136-145)
[2019-10-20] MEDS: Carvedilol 3.125 MG TAB PO SCH ×2 (08:26→20:24)
[2019-10-20] MEDS: Polyethylene Glycol 3350 17 GM Packet PO SCH (08:26)
[2019-10-20] MEDS: Senokot S 8.6-50 MG TAB PO SCH ×2 (08:26→20:24)
[2019-10-20] MEDS: Gabapentin 100 MG CAP PO SCH ×2 (08:26→20:24)
[2019-10-20] MEDS: Ferrous Sulfate 325 MG TAB PO SCH ×2 (08:26→18:04)
[2019-10-20] MEDS: Ascorbic Acid 500 mg Chewable Tablet PO SCH ×2 (08:26→20:24)
[2019-10-20] MEDS ORDERED: PHOS-NAK 1 PKT PACK PO SCH (09:30)
[2019-10-20] MEDS ORDERED: Magnesium 2 GM/50 ML 2 GM in Premix Bag 1 BAG IVPB SCH (09:30)
--- NOTE | 2019-10-20 13:46 | PRG ---
DATE OF SERVICE: 10/20/2019 SUBJECTIVE: Patient was seen this morning sitting up in bed, having breakfast with no signs of acute distress. He reported his pain is well controlled, he slept overnight, tolerating his regular diet, working with Physical and Occupational therapy, pending placement at rehab. OBJECTIVE: VITAL SIGNS: Temperature 98.0, pulse 92, respirations 16, oxygen saturation 93% on room air, blood pressure 152/87. GENERAL: Well-appearing elderly male, sitting up in bed with no signs of acute distress. PULMONARY: Equal chest rise and fall, clear breath sounds bilaterally. No signs of acute respiratory distress. CARDIAC: Regular rate and rhythm. No murmurs, gallops, rubs. GI: Abdomen is soft, nontender, nondistended.. EXTREMITIES: 2+ pulses in all extremities. Gross motor and sensation intact. No significant swelling noted. LABORATORY FINDINGS: White count 9.8, hemoglobin 9.8, hematocrit 30.9, platelets 217. Sodium 138, potassium 3.9, chloride 108, bicarb 24, BUN 22, creatinine 0.85, glucose 94, phosphorus 2.0, magnesium 1.9. DIAGNOSTIC FINDINGS: There are no new diagnostic findings to report. ASSESSMENT: 1. Status post mechanical fall, on Plavix. 2. Left ulnar fracture, status post repair. 3. Left acetabular fracture with extraperitoneal hematoma, stable and nonoperative. 4. History of hypertension, pacemaker, L-spine compression fracture. 5. Acute hypophosphatemia and hypomagnesemia. PLAN: Continue current diet and pain regimen. Continue current home medications. We will discontinue Lovenox and place the patient back on his home Plavix for DVT prophylaxis as well. He will receive phosphorus and magnesium replacements. We are pending approval by insurance to send the patient to acute rehab facility. He is ready for discharge at this time. Meanwhile, we will continue to provide supportive care as well as physical and occupational therapy. The patient was seen and examined by Dr. Arteaga and myself this morning during rounds. Job ID: [id number]
[2019-10-20] MEDS: Pravastatin Sodium 20 MG TAB PO SCH (20:24)
[2019-10-20] MEDS ORDERED: Clopidogrel Bisulfate 75 MG TAB PO SCH (21:00)
[2019-10-20] MEDS ORDERED: Famotidine 20 MG TAB PO SCH (21:00)
--- NOTE | 2019-10-20 23:02 | PRG ---
DATE OF SERVICE: 10/20/2019 SUBJECTIVE: The patient was seen this evening during rounds, awake, alert, in no distress. The patient reports that his pain is well controlled at this time. The patient continues to tolerate a regular diet and voices no complaints at this time. OBJECTIVE: VITAL SIGNS: Stable, afebrile, adequate urinary output. GENERAL: Well-appearing elderly male, lying in hospital bed, in no acute distress. PULMONARY: Equal chest rise and fall. RESPIRATORY: Respirations are even and nonlabored, no respiratory distress. EXTREMITIES: Moves all extremities. Splint, clean, dry, and intact to left upper extremity. ASSESSMENT: 1. Status post fall, on Plavix. 2. Left ulnar fracture postop day 3 open reduction and internal fixation. 3. Left acetabular fracture with extra-peritoneal hematoma, stable and nonoperative. 4. History of hypertension, pacemaker, L-spine compression fracture. PLAN: Continue current diet and supportive care. Continue physical and occupational therapy. The patient is ready for discharge at this time. The patient is pending placement to inpatient rehab. Job ID: [id number]
[2019-10-21] MEDS: Acetaminophen 500 MG TAB PO SCH ×3 (00:54→13:19)
[2019-10-21] MEDS: traMADol HCl 50 MG TAB PO PRN ×2 (02:21→15:10)
[2019-10-21] MEDS: Ibuprofen 600 MG TAB PO SCH ×2 (05:10→13:19)
[2019-10-21] MEDS ORDERED: hydrALAZINE 20 MG/ML VIAL SLOW IVP PRN (08:03)
[2019-10-21] MEDS: Polyethylene Glycol 3350 17 GM Packet PO SCH (08:46)
[2019-10-21] MEDS: Gabapentin 100 MG CAP PO SCH (08:46)
[2019-10-21] MEDS: Ascorbic Acid 500 mg Chewable Tablet PO SCH (08:46)
[2019-10-21] MEDS: Ferrous Sulfate 325 MG TAB PO SCH (08:47)
[2019-10-21] MEDS: Senokot S 8.6-50 MG TAB PO SCH (08:47)
[2019-10-21] MEDS: Carvedilol 3.125 MG TAB PO SCH (08:47)
[2019-10-21] MEDS ORDERED: Lisinopril 20 MG TAB PO SCH (11:45)
[2019-10-21] MEDS ORDERED: Tamsulosin HCl 0.4 MG CAP PO SCH (11:45)
[2019-10-21 12:14] LABS: #Eosinphils 0.6 thou/uL (0.0-0.7); #Lymphocytes 0.8 thou/uL (1.20-3.40); #Monocytes 0.8 thou/uL (0.11-0.59); #Neutrophils 4.9 thou/uL (1.40-6.50); %Basophils 0.4 % (0.0-1.0); %Eosinophils 8.2 % (0.0-10.0); %Lymphocytes 10.9 % (21.0-51.0); %Monocytes 11.6 % (0.0-10.0); %Neutrophils 68.9 % (42.0-75.0); Hemoglobin 10.3 g/dL (14.0-18.0); Mean Corpuscular HGB CONC 31.4 g/dL (32.0-36.0); Mean Corpuscular Hemoglobin 26.6 pg (27.0-31.0); Mean Corpuscular Volume 84.8 fL (78.0-98.0); Mean Platelet Volume 7.6 fL (7.4-10.4); Platelet Count 249 thou/uL (130-400); RBC Distribution Width 15.3 % (11.5-14.5); Red Blood Cell (RBC) Count 3.86 mill/uL (4.70-6.10); White Blood Cell (WBC) Count 7.1 thou/uL (4.8-10.8)
[2019-10-21 15:32] VITALS: BP 169/73; TEMP 98.1
--- NOTE | 2019-10-21 15:33 | DIS ---
DATE OF ADMISSION: 10/16/2019 DATE OF DISCHARGE: 10/21/2019 ADMISSION DIAGNOSES: Mechanical fall, on Plavix. Left proximal ulnar fracture, left acetabular fracture with associated extraperitoneal hematoma. DISCHARGE DIAGNOSES: Mechanical fall, on Plavix. Left proximal ulnar fracture, left acetabular fracture with associated extraperitoneal hematoma. CONSULTING PHYSICIAN: Dr. Nolasco of Orthopedic Surgery. PROCEDURES: The patient went to the OR on October 17, 2019 and patient had ORIF of the left olecranon fracture. HOSPITAL COURSE: The patient is an 89-year-old male presented to the emergency department after a mechanical fall on Plavix. The patient was found to have a left ulnar fracture and left acetabular fracture with extraperitoneal hematoma. Dr. Nolasco of Orthopedic Surgery was consulted, who took the patient to the OR the next day and he had ORIF of the left olecranon fracture. Postoperatively, he was restarted on all of his home medications. He worked with Physical and Occupational Therapy. Ultimately, he was restarted on his home Plavix and that also served as his DVT prophylaxis. He was tolerating a regular diet and voiding without issues. At time of discharge, he was discharged to [place] [facility] per family request. DISCHARGE DISPOSITION: residential facility. DISCHARGE CONDITION: Satisfactory. PHYSICAL EXAMINATION: VITAL SIGNS: Temperature 97.7, pulse 79, respirations 20, oxygen saturation 99% on room air, blood pressure 147/100. GENERAL: Well-appearing elderly male, sitting up in bed with no signs of acute distress. PULMONARY: Equal chest rise and fall. No signs of acute respiratory distress. CARDIAC: Regular rate and rhythm. GI: Abdomen soft, nontender, nondistended. EXTREMITIES: 2+ pulses in lower extremities. Gross motor sensation is intact. No significant swelling noted. Left upper extremity with splint that is clean, dry, and in place. NEURO: GCS is 15. DISCHARGE INSTRUCTIONS: The patient was discharged to a [place] [facility]. Activity as tolerated nonweightbearing to the left upper extremity. Weightbearing as tolerated to all other extremities. He will have a heart healthy diet. He will have Physical and Occupational Therapy. He will have incentive spirometry, walker and a sling for the left upper extremity. MEDICATIONS: Include Tylenol, vitamin C, carvedilol, clopidogrel, ferrous sulfate, gabapentin, nitroglycerin, MiraLAX, pravastatin, tramadol. FOLLOWUP APPOINTMENTS: The patient will follow up with Dr. Nolasco as well as his primary care physician and no followup is needed with [facility]. This is a summary of the patient's hospitalization. For full details, please see his medical record in its entirety. Job ID: [id number]
--- NOTE | 2019-10-24 13:57 | EKG ---
Test Reason : FALL Blood Pressure : / mmHG Vent. Rate : 077 BPM Atrial Rate : 077 BPM P-R Int : 112 ms QRS Dur : 142 ms QT Int : 450 ms P-R-T Axes : 088 133 093 degrees QTc Int : 509 ms Electronic ventricular pacemaker Confirmed by JUSTIN NAIR DO ([id number]), social media editor SHANTELL ROOT ([id number]) on 10/24/2019 1:56:54 PM Referred By: Confirmed By:JUSTIN NAIR DO
== END 2019-10-21 15:40 | DRG 959 ==
LOC: ERS 11:41 → SURG A 17:18
PROVIDERS: ADMIT Specialist; ATTEND Specialist
PROC: 0PSL04Z Reposition Left Ulna with Internal Fixation Device, Open Approach (ICD-10-PCS; principal; 2019-10-17)
DX: S52.002A Unspecified fracture of upper end of left ulna, initial encounter for closed fracture (principal); S32.402A Unspecified fracture of left acetabulum, initial encounter for closed fracture; S36.892A Contusion of other intra-abdominal organs, initial encounter; I10 Essential (primary) hypertension; Z95.0 Presence of cardiac pacemaker; Z96.653 Presence of artificial knee joint, bilateral; W01.0XXA Fall on same level from slipping, tripping and stumbling without subsequent striking against object, initial encounter; Z88.2 Allergy status to sulfonamides; S52.022A Displaced fracture of olecranon process without intraarticular extension of left ulna, initial encounter for closed fracture; R40.2412 Glasgow coma scale score 13-15, at arrival to emergency department
CPT/HCPCS: 36415; 36416; 70450; 71045; 71260; 72125; 72170; 74177; 76000; 80048; 80053; 83735; 84100; 85025; 85610; 85730; 86850; 86900; 86901; 93005; C1713; J0690; J1100; J1170; J1650; J2001; J2270; J2370; J2405; J2704; J2765; J3010; J3475; Q9967; S0020; S0028

== ENCOUNTER 2020-02-09 23:34 | Emergency (ER) | payer MEDICARE, BC ==
[~2020-02-09 23:34] MED LIST: Iopamidol 370 76% 100 ML VIAL ONE
[2020-02-10] MEDS ORDERED: Morphine 4 MG/ML VIAL ONE
[2020-02-10] MEDS ORDERED: Ondansetron PF 4 MG/2 ML Vial ONE ×2 (00:01→00:02)
[2020-02-10 00:13] LABS: #Eosinphils 0.2 thou/uL (0.0-0.7); #Lymphocytes 0.7 thou/uL (1.20-3.40); #Monocytes 0.7 thou/uL (0.11-0.59); #Neutrophils 8.1 thou/uL (1.40-6.50); %Basophils 0.2 % (0.0-1.0); %Eosinophils 2.3 % (0.0-10.0); %Monocytes 6.8 % (0.0-10.0); %Neutrophils 83.8 % (42.0-75.0); Hemoglobin 12.9 g/dL (14.0-18.0); Mean Corpuscular HGB CONC 29.9 g/dL (32.0-36.0); Mean Corpuscular Hemoglobin 26.6 pg (27.0-31.0); Mean Corpuscular Volume 88.8 fL (78.0-98.0); Mean Platelet Volume 7.1 fL (7.4-10.4); Platelet Count 265 thou/uL (130-400); RBC Distribution Width 13.5 % (11.5-14.5); Red Blood Cell (RBC) Count 4.86 mill/uL (4.70-6.10); White Blood Cell (WBC) Count 9.6 thou/uL (4.8-10.8)
[2020-02-10 00:26] LABS: ALT (SGPT) 8 U/L (8-55); AST (SGOT) 13 U/L (5-34); Albumin 4.1 g/dL (3.4-4.8); Alkaline Phosphatase 124 U/L (40-110); Anion Gap 17 mmol/L (10-20); BUN (Urea Nitrogen) 24 mg/dL (8.4-25.7); Bilirubin, Total 0.6 mg/dL (0.2-1.2); Calc. Creatinine Clearance 0 mL/min (70-130); Calcium 9.9 mg/dL (7.8-10.44); Carbon Dioxide 23 mmol/L (23-31); Chloride 103 mmol/L (98-107); Estimated GFR-MDRD 60; Globulin 2.7 g/dL (2.4-3.5); Glucose 158 mg/dL (83-110); Lipase 33 U/L (8-78); Potassium 4.5 mmol/L (3.5-5.1); Protein, Total 6.8 g/dL (5.8-8.1); Sodium 138 mmol/L (136-145)
[2020-02-10 01:20] LABS: Bacteria/HPF None Seen HPF (None Seen); Bilirubin Negative (Negative); Blood, Urine 2+ (Negative); Clarity Clear (Clear); Glucose, Urine (Dipstick) Normal (Negative); Leukocyte Negative Leu/uL (Negative); Nitrite Negative (Negative); Protein, Urine (Dipstick) 20 mg/dL (Neg-Trace); RBC/HPF Greater than 50 HPF (0-3); Squamous Epithelial None Seen HPF (0-3); Urobilinogen Normal mg/dL (Less than 2); WBC/HPF 0-3 HPF (0-3)
[2020-02-10] MEDS ORDERED: HYDROcodone/Acetaminophen 5/325 mg Tablet ONE (01:53)
--- NOTE | 2020-02-10 07:57 | CT ---
PRELIMINARY REPORT/[facility]/EMERGENCY AFTER HOURS PROCEDURE EXAM: CT Abdomen and Pelvis with Intravenous Contrast CLINICAL HISTORY: 89 yo M presents to ER with c/o RLQ abdominal pain that began last night and came back tonight around 1800. Pt denies nausea, vomiting, or diarrhea. Surgical hx of appendectomy TECHNIQUE: Axial computed tomography images of the abdomen and pelvis with intravenous contrast. CONTRAST: With; ISOVUE COMPARISON: CTSR - CT CHEST ABD PELVIS W CON - 10/16/2019 04:56 PM DOORPERSON FINDINGS: LUNG BASES: No basilar airspace consolidation or pleural effusion. LIVER: Calcified granuloma in the liver. A few small nonspecific hepatic parenchymal hypodensities measuring approximately 5 mm in size. Surve illance is recommended, if the patient is clinically able and willing to pursue management should these subsequently change in a manner suspicious for metastatic disease. GALLBLADDER AND BILE DUCTS: Unremarkable. No calcified stone. No ductal dilation. PANCREAS: Unremarkable. SPLEEN: Calcified granulomas in the spleen. ADRENAL GLANDS: Unremarkable. KIDNEYS, URETERS, AND BLADDER: A 6 mm calculus in the proximal right ureter resulting in moderate right hydronephrosis. A nonobstructing calculus in the mid right kidney. Bilateral renal parenchymal hypodensities most consistent with cysts. STOMACH AND BOWEL: Large hiatal hernia. Diverticulosis. No evidence of diverticulitis. Moderate volume of formed stool in the colon raising the possibility of some degree of constipation. APPENDIX: No CT evidence for appendicitis. PERITONEUM: No free fluid. No free air. REPRODUCTIVE: Unremarkable as visualized. VASCULATURE: No aortic aneurysm. BONES: Late subacute early chronic fracture deformities of the left acetabulum and inferior pubic ramus. Stable T12 compression fracture deformity. Osteopenia. ABDOMINAL WALL AND SOFT TISSUES: Unremarkable. IMPRESSION: 1. A 6 mm calculus in the proximal right ureter resulting in moderate right hydronephrosis. 2. A nonobstructing calculus in the mid right kidney. 3. Large hiatal hernia. 4. Diverticulosis. No evidence of diverticulitis. 5. Moderate volume of formed stool in the colon raising the possibility of some degree of constipatio n. 6. A few small nonspecific hepatic parenchymal hypodensities measuring approximately 5 mm in size. Castro rveillance is recommended, if the patient is clinically able and willing to pursue management should these subsequently change in a manner suspicious for metastatic disease. 7. Late subacute early chronic fracture deformities of the left acetabulum and inferior pubic ramus. 8. Stable T12 compression fracture deformity. ELECTRONICALLY SIGNED BY: Marcelo Ayala MD February 10, 2020 1:16:55 AM CDT This report is intended for review by the ordering physician only, in accordance of law. If you recei ve this report in error, please call [facility] at [phone]. FINAL REPORT EMERGENT AFTER HOURS CT ABDOMEN AND PELVIS WITH IV CONTRAST: HISTORY: Right lower quadrant abdominal pain. COMPARISON: 06/12/2013 and 10/16/2019. IMPRESSION: 1. Partially obstructing proximal right ureteral calculus measuring 6 mm results in mild right hydron ephrosis and hydroureter. 2. Approximately 6 mm nonobstructing calculus midportion right kidney. 3. Subcentimeter too small to characterize hypodense lesions involving each kidney statistically like ly representing cysts. 4. Stable subcentimeter hypodense lesions in each lobe of the liver similar in number and size compar ed to study in 2012. 5. Large hiatal hernia with the fundus and large portion of body of the stomach above the level of th e hemidiaphragms. 6. Mild cardiomegaly. 7. Right perinephric inflammatory stranding and fluid predominantly adjacent to the inferior pole whi ch is likely secondary to the obstruction. No definite parenchymal hypodensity is seen to suggest pyelonephritis; although, this would be difficult to entirely exclude. 8. Colonic diverticulosis. 9. Stable wedge-shaped compression fracture T12 vertebral body with stable grade 1 anterolisthesis of L4 on L5. 10. Remote fractures involving the left acetabulum and left inferior pubic ramus which were seen on s tudy of 10/16/2019. Findings are in agreement with pulmonary report by [facility]. Transcribed Date/Time: 02/10/2020 9:05 AM
--- NOTE | 2020-02-18 16:35 | EKG ---
Test Reason : Blood Pressure : / mmHG Vent. Rate : 079 BPM Atrial Rate : 079 BPM P-R Int : 122 ms QRS Dur : 148 ms QT Int : 444 ms P-R-T Axes : 037 221 034 degrees QTc Int : 509 ms Electronic ventricular pacemaker Confirmed by CHE BAPTISTE ([id number]), news videotape editor CARMEN PALMA ([id number]) on 02/18/2020 4:34:25 PM Referred By: Confirmed By:CHE BAPTISTE
== END 2020-02-10 01:56 | disposition home or self-care (01) ==
LOC: ERS 23:34
DX: N13.2 Hydronephrosis with renal and ureteral calculous obstruction (principal); I10 Essential (primary) hypertension
CPT/HCPCS: 36415; 74177; 80053; 81003; 81015; 83690; 85025; 93005; 96374; 96375; J2270; J2405; Q9967